=== PATIENT | female | born 1970 | race Caucasian/White ===

== ENCOUNTER 2023-09-12 06:13 | Day surgery (SDC) | payer OTHER, SELFPAY ==
[2023-09-04 07:16] VITALS: BMI 43.5
[2023-09-04 08:50] LABS: % Basophils 0.7 % (0-2); % Immature Granulocytes 0.3 % (0-0.5); % Lymphocytes 34.8 % (20.5-51.1); % Monocytes 7.2 % (1.7-9.3); Absolute Basophils 0.1 10^3/uL (0-0.2); Absolute Eosinophils 0.2 10^3/uL (0-0.7); Absolute Lymphocytes 2.4 10^3/uL (1.2-3.4); Absolute Monocytes 0.5 10^3/uL (0.1-0.6); Absolute Neutrophils 3.7 10^3/uL (1.4-6.5); Hematocrit 38.3 % (37.0-47.0); Hemoglobin 13.3 g/dL (12.0-16.0); Mean Corp Hgb Conc. 34.7 g/dL (33.0-37.0); Mean Corpuscular Hgb 30.7 pg (27.0-31.0); Mean Corpuscular Volume 88.5 fL (81.0-99.0); Mean Platelet Volume 9.8 fL (7.4-10.4); Nucleated Red Blood Cells % 0 %; Platelet Count 309 10^3/uL (130-400); Red Blood Cell Count 4.33 10^6/uL (4.20-5.40); Red Cell Dist. Width 12.6 % (11.5-14.5); White Blood Cell Count 6.9 10^3/uL (4.8-10.8)
[2023-09-04 09:09] LABS: Blood Urea Nitrogen 16 mg/dl (7-17); Carbon Dioxide 25 mmol/L (22-30); Chloride 106 mmol/L (98-107); Estimated Creatinine Clearance 112 ml/min; Glucose 93 mg/dl (70-99); Sodium 136 mmol/L (135-145); eGFR > 60.00
[2023-09-04 09:45] LABS: HCG, Serum Qualitative Screen Negative
[2023-09-12] VITALS (10 sets, daily range): BP systolic 107–136; BP diastolic 67–90; BMI 43.5
[2023-09-12] MEDS: TYLENOL 1000 MG PO (06:47)
[2023-09-12] MEDS: NORMOSOL-R 1000 IV (06:49)
--- NOTE | 2023-09-12 09:12 | W.IMMPOSTOP ---
Surgical Immed Post Op Note
-
Primary Surgeon: Alma Izaguirre DO
Assisting Surgeon: none
Pre-op Diagnosis: Menorrhagia; endometrial polyps
Post-op Diagnosis: same
Procedure Performed: Hysteroscopy D&C polypectomy
Anesthesia Type: LMA Dr. Stevenson
Specimen / Cultures: 1. endocervical curettings 2. endometrial curettings with plyps
Estimated Blood Loss: less than 5 ml
FLuid deficit 80ml NSS
Complications: none
Operative Findings: Endocervical canal normal appearance. Tiny endometrial polyps (many) noted. Bilateral tubal ostia seen. No large polyps noted.
Counts correct times 2.
Stable to recovery.
[2023-09-12] MEDS: DILAUDID 0.25 MG IV (09:55)
[2023-09-12] MEDS: TORADOL 15 MG IV (10:00)
== END 2023-09-12 11:38 | disposition home or self-care (01) ==
LOC: SDS 06:13
PROVIDERS: ATTENDING PHYSICIAN Obstetrics & Gynecology; FAMILY PHYSICIAN Physician Assistant Medical
DX: N84.0 Polyp of corpus uteri (principal); N92.0 Excessive and frequent menstruation with regular cycle; N71.1 Chronic inflammatory disease of uterus
CPT/HCPCS: 58558; 88305; 36415; 80048; 84703; 85025; 86850; 86900; 86901; 93005

== ENCOUNTER → 2023-10-06 16:07 | Outpatient (REF) | payer OTHER, SELFPAY | LOC: WDC 16:07 | PROVIDERS: ATTENDING PHYSICIAN Obstetrics & Gynecology; FAMILY PHYSICIAN Physician Assistant Medical | DX: Z12.31 Encounter for screening mammogram for malignant neoplasm of breast (principal) | CPT/HCPCS: 77063; 77067 ==

== ENCOUNTER → 2023-10-28 15:44 | Outpatient (REF) | payer OTHER, SELFPAY | LOC: RAD 15:44 | PROVIDERS: ATTENDING PHYSICIAN Obstetrics & Gynecology; FAMILY PHYSICIAN Physician Assistant Medical | DX: R10.2 Pelvic and perineal pain (principal) | CPT/HCPCS: 76830; 76856 ==